=== PATIENT | female | born 1960 | race Caucasian/White ===

== ENCOUNTER 2017-08-02 12:27 | Emergency (ER) | payer MEDICAID, OTHER ==
[~2017-08-02] VITALS: Ht 165.1 cm; Wt 90.7 kg
[~2017-08-02 12:27] MED LIST: AMLODIPINE BESY10 MG ORAL; CATAPRES0.2 MG ORAL; CYCLOBENZAPRINE10 MG ORAL; GUAIFENESIN-CO118 M1 ORAL; HYDROCHLOROTHIA25 MG ORAL; IBUPROFEN600 MG ORAL; INHALERS; KEFLEX500 MG PO; NAPROXEN375 MG PO; NORCO 5-325 TA1 EACH ORAL; NORCO 5-325 TA1 EACH PO; OMEPRAZOLE40 M1 ORAL; PERCOCET1 TAB ORAL; ZITHROMAX250 MG ORAL; albuterol; atrovent
[2017-08-02] MEDS ORDERED: VISTARIL25 M1 PO (12:42)
[2017-08-02] MEDS ORDERED: CODEINE 30MG TA30 MG ORAL (12:42)
[2017-08-02] MEDS ORDERED: SOMA350 MG PO (12:42)
[2017-08-02 13:47] LABS: APPEARANCE,URINE CLEAR; KETONES,URINE NEGATIVE (NEGATIVE); LEUKOCYTE ESTERASE ,URINE 2+ (NEGATIVE); NITRITE,URINE NEGATIVE (NEGATIVE); PH,URINE 6 (4.5-8.0); PROTEIN,URINE NEGATIVE (NEGATIVE); UROBILINOGEN,URINE NORMAL MG/DL (0.0-1.0)
[2017-08-02 13:58] LABS: BACTERIA,URINE FEW /HPF; RBC,URINE 0-2 /HPF (0 - 2); SQUAMOUS EPITHELIAL CELL,UR FEW /LPF (NONE/OCC)
[2017-08-02 14:02] LABS: BASOPHILS % (AUTO) 1.4 % (0.0-2.0); EOSINOPHILS % (AUTO) 2.3 % (0.0-3.0); LYMPHOCYTES % (AUTO) 26.4 % (20.0-45.0); MEAN CORPUSCULAR HEMOGLOBIN 25.2 PG (27.0-31.0); MEAN CORPUSCULAR HGB CONC 29.8 G/DL (32.0-36.0); MEAN CORPUSCULAR VOLUME 85 FL (80-99); MEAN PLATELET VOLUME 4.8 FL (6.5-10.1); MONOCYTES % (AUTO) 7.3 % (1.0-10.0); NEUTROPHILS % (AUTO) 62.6 % (45.0-75.0); PLATELET COUNT 293 K/UL (150-450); RED BLOOD COUNT 5.34 M/UL (4.20-5.40)
[2017-08-02 14:13] VITALS: BP 178/98
[2017-08-02 14:33] LABS: ANION GAP 7 mmol/L (5-15); CALCIUM 9.5 MG/DL (8.5-10.1); CARBON DIOXIDE 27 MMOL/L (21-32); CHLORIDE 105 MMOL/L (98-107); CREATININE 1.1 MG/DL (0.55-1.30); POTASSIUM 4.3 MMOL/L (3.5-5.1); SODIUM 139 MMOL/L (136-145)
[2017-08-02 14:38] LABS: ALANINE AMINOTRANSFERASE 172 U/L (12-78); ALBUMIN/GLOBULIN RATIO 1.1 (1.0-2.7); ASPARTATE AMINO TRANSFERASE 77 U/L (15-37); LIPASE 311 U/L (73-393); TOTAL PROTEIN 7.5 G/DL (6.4-8.2)
--- NOTE | 2017-08-02 15:44 | Emergency Room Report ---
History of Present Illness General Chief Complaint: Pain Source: Patient Present Illness Allergies: Coded Allergies: SULFA(SULFONAMIDE ANTIBIOTICS) (Verified Allergy, Severe, 08/18/12) Patient History Last Menstrual Period: Post. Nursing Documentation-PMH Hx Hypertension: Yes Hx Pacemaker: No - "Metal stuart in right femur; screw in hip" Hx Asthma: Yes Hx COPD: Yes Hx Diabetes: No Hx Cancer: No Hx Dialysis: No Hx Neurological Problems: No Hx Seizures: No Physical Exam Vital Signs Date Time Temp Pulse Resp B/P (MAP) Pulse Ox O2 Delivery O2 Flow Rate FiO2 08/02/17 12:35 97.5 89 19 162/116 100 Room Air Medical Decision Making PA Attestation Dr. Maurice is my supervising Physician whom patient management has been discussed with. Diagnostic Impression: Primary Impression: Back pain Qualified Codes: M54.5 - Low back pain; G89.29 - Other chronic pain Additional Impression: Abdominal pain Qualified Codes: R10.9 - Unspecified abdominal pain ER Course Pt. presents to the ED c/o lowback and abdominal pain x several weeks. 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 Ddx considered but are not limited to Diverticulitis, acute appy, diarrhea,UC, PUD, GE, pancreatitis, gallstone Vital signs: are WNL, pt. is afebrile H&PE are most consistent with abdominal pain , HTN, and over-use of rx / not following directions as prescribed. ORDERS: -CBC, CMP: Unremarkable -EKG: - Troponin; negative -lipase: WNL -UA: unremarkable no occult blood or rbc's -UDS: positive for benzo's, opiates. -CT Abdomen without contrast: No acute pathology. per radiology report. ED INTERVENTIONS: -- DISCHARGE: At this time pt. is stable for d/c to home. Will provide printed patient care instructions, and any necessary prescriptions. Care plan and follow up instructions have been discussed with the patient prior to discharge. Labs Test 08/02/17 13:37 08/02/17 13:57 Urine Color Yellow Urine Appearance Clear Urine pH 6 (4.5-8.0) Urine Specific [place]ell 1.010 (1.005-1.035) Urine Protein Negative (NEGATIVE) Urine Glucose (UA) Negative (NEGATIVE) Urine Ketones Negative (NEGATIVE) Urine Occult Blood Negative (NEGATIVE) Urine Nitrite Negative (NEGATIVE) Urine Bilirubin Negative (NEGATIVE) Urine Urobilinogen Normal MG/DL (0.0-1.0) Urine Leukocyte Esterase 2+ (NEGATIVE) Urine RBC 0-2 /HPF (0 - 2) Urine WBC 5-10 /HPF (0 - 2) Urine Squamous Epithelial Cells Few /LPF (NONE/OCC) Urine Bacteria Few /HPF (NONE) Urine Opiates Screen Positive (NEGATIVE) Urine Barbiturates Screen Negative (NEGATIVE) Phencyclidine (PCP) Screen Negative (NEGATIVE) Urine Amphetamines Screen Negative (NEGATIVE) Urine Benzodiazepines Screen Positive (NEGATIVE) Urine Cocaine Screen Negative (NEGATIVE) Urine Marijuana (THC) Screen Negative (NEGATIVE) White Blood Count 6.0 K/UL (4.8-10.8) Red Blood Count 5.34 M/UL (4.20-5.40) Hemoglobin 13.5 G/DL (12.0-16.0) Hematocrit 45.2 % (37.0-47.0) Mean Corpuscular Volume 85 FL (80-99) Mean Corpuscular Hemoglobin 25.2 PG (27.0-31.0) Mean Corpuscular Hemoglobin Concent 29.8 G/DL (32.0-36.0) Red Cell Distribution Width 13.0 % (11.6-14.8) Platelet Count 293 K/UL (150-450) Mean Platelet Volume 4.8 FL (6.5-10.1) Neutrophils (%) (Auto) 62.6 % (45.0-75.0) Lymphocytes (%) (Auto) 26.4 % (20.0-45.0) Monocytes (%) (Auto) 7.3 % (1.0-10.0) Eosinophils (%) (Auto) 2.3 % (0.0-3.0) Basophils (%) (Auto) 1.4 % (0.0-2.0) Sodium Level 139 MMOL/L (136-145) Potassium Level 4.3 MMOL/L (3.5-5.1) Chloride Level 105 MMOL/L (98-107) Carbon Dioxide Level 27 MMOL/L (21-32) Anion Gap 7 mmol/L (5-15) Blood Urea Nitrogen 14 mg/dL (7-18) Creatinine 1.1 MG/DL (0.55-1.30) Estimat Glomerular Filtration Rate 51.0 mL/min (>60) Glucose Level 91 MG/DL (74-106) Calcium Level 9.5 MG/DL (8.5-10.1) Total Bilirubin 0.3 MG/DL (0.2-1.0) Aspartate Amino Transf (AST/SGOT) 77 U/L (15-37) Alanine Aminotransferase (ALT/SGPT) 172 U/L (12-78) Alkaline Phosphatase 105 U/L (46-116) Troponin I 0.019 ng/mL (0.000-0.056) Total Protein 7.5 G/DL (6.4-8.2) Albumin 3.9 G/DL (3.4-5.0) Globulin 3.6 g/dL Albumin/Globulin Ratio 1.1 (1.0-2.7) Lipase 311 U/L (73-393) CT/MRI/US Diagnostic Results CT/MRI/US Diagnostic Results : Imaging Test Ordered: Ct Abdomen NO CONTRAST Impression Gall-Bladder is surgically absent, there is degenerative changes in the lumbar spine in addition to notable feces in the bowels. No acute pathology Per official radiology report- Please see report for specific details. Last Vital Signs Date Time Temp Pulse Resp B/P (MAP) Pulse Ox O2 Delivery O2 Flow Rate FiO2 08/02/17 14:13 97.0 59 17 178/98 98 Room Air Disposition: HOME, SELF-CARE Condition: Stable Scripts Phenazopyridine Hcl* (PYRIDIUM*) 200 Mg Tablet 200 MG ORAL THREE TIMES A DAY for 3 Days, #9 TAB 0 Refills Prov: Deborah Campos 08/02/17 Lidocaine (Lidoderm) 1 Each Adh..patch 1 PATCH TOPIC DAILY, #20 PATCH 0 Refills Patch(es) may remain in place for up to 12 hours in any 24-hour period. Prov: Deborah Campos 08/02/17 Referrals: [facility],REFERRIN (PCP) Patient Instructions: Abdominal Pain, Adult, Back Pain, Adult Additional Instructions: Take medications as directed. Follow up with a Primary Care Provider in 3 days, even if your symptoms have resolved. --Please review list of primary care clinics, if you do not already have a primary care provider Return sooner to ED if new symptoms occur, or current symptoms become worse. Do not drink alcohol, drive, or operate heavy machinery while taking Robaxin as this may cause drowsiness. - Please note that this Emergency Department Report was dictated using [employer] dyer technology software, occasionally this can lead to erroneous entry secondary to interpretation by the dictation equipment. Deborah Campos Aug 02, 2017 15:44
[2017-08-02] MEDS ORDERED: LIDODERM700 M1 TOPIC (15:48)
[2017-08-02] MEDS ORDERED: PHENAZOPYRIDIN200 MG ORAL (15:57)
[2017-08-02 16:05] VITALS: BP 112/80
--- NOTE | 2017-08-03 14:11 | Diagnostic Imaging Report ---
Clinical Indication: Abdominal pain Technique: No oral contrast utilized, per emergency room physician request IV administration nonionic contrast. Multiphasic spiral acquisition obtained through the chest, abdomen and pelvis. Multiplanar reconstructions were generated. Total dose length product 884 mGycm. CTDIvol(s) 18 mGy. Dose reduction achieved using automated exposure control Comparison: None Findings: Lack of enteric contrast limits assessment of the GI tract. There is colonic diverticulosis. The appendix is normal. No small bowel distention. No free or loculated intraperitoneal air or fluid. The distal esophagus, stomach, duodenum or unremarkable. Lack of IV contrast limits assessment of the solid organs. The gallbladder is surgically absent. The liver, pancreas, spleen are unremarkable. The right adrenal demonstrates a 16 mm nodule in the anterior limb and a 17 mm nodule in the posterior limb. These both demonstrate low attenuation, under 10 Hounsfield units. The left adrenal equivocally demonstrates a 2 cm mass which likewise demonstrates low-attenuation. The right kidney is unremarkable. The left kidney demonstrates a high attenuation subcentimeter focus which may reflect a focus of medullary sponge kidney. No renal or ureteral calculi, hydronephrosis, or hydroureter. No pelvic mass or adenopathy. Surgical hardware is seen in the right hip. There is unilateral right L5 spondylolysis. There is grade 1 L5 on S1 spondylolisthesis. There are mild degenerative changes of the lumbosacral junction and thoracolumbar junction. Included lung bases demonstrate posterior dependent atelectatic changes Impression: Limited assessment of the GI tract, due to lack of enteric contrast administration No definite acute abnormality Colonic diverticulosis. No evidence of diverticulitis Bilateral adrenal nodules which demonstrate low attenuation, presumably benign adenomas. Unilateral right L5 spondylolysis, grade 1 L5 on S1 spondylolisthesis, mild secondary degenerative changes Other findings as noted, including right hip surgical hardware, posterior dependent pulmonary atelectatic changes The CT scanner at [facility] is accredited by the [employer] and the scans are performed using protocols designed to limit radiation exposure to as low as reasonably achievable to attain images of sufficient resolution adequate for diagnostic evaluation.
--- NOTE | 2017-08-14 19:23 | Cardiology Report ---
APPROVED REPORT EKG Measurement Heart [id number] Sinus bradycardia Possible Left atrial enlargement T wave abnormality, consider lateral ischemia Abnormal ECG
== END 2017-08-02 16:01 | disposition home or self-care (01) ==
LOC: EMR 13:00
DX: M54.5 Low back pain (principal); R10.9 Unspecified abdominal pain; J44.9 Chronic obstructive pulmonary disease, unspecified; I10 Essential (primary) hypertension; K57.30 Diverticulosis of large intestine without perforation or abscess without bleeding; Z88.2 Allergy status to sulfonamides; M47.816 Spondylosis without myelopathy or radiculopathy, lumbar region; M43.16 Spondylolisthesis, lumbar region
CPT/HCPCS: 36415; 74176; 80053; 80307; 81003; 83690; 84484; 85025; 93005; 99284

== ENCOUNTER 2018-01-16 12:01 | Emergency (ER) | payer OTHER ==
[~2018-01-16] VITALS: Ht 165.1 cm; Wt 90.7 kg
[~2018-01-16 12:01] MED LIST changes: +CODEINE 30MG TA30 MG ORAL; +LIDODERM700 M1 TOPIC; +PHENAZOPYRIDIN200 MG ORAL; +SOMA350 MG PO; +VISTARIL25 M1 PO
[2018-01-16 12:14] VITALS: BP 184/118
[2018-01-16] MEDS ORDERED: Methocarbamol 750mg tab ORAL ONE (12:30)
[2018-01-16] MEDS ORDERED: Tylenol #3 tab (300mg/30mg) ORAL ONE (12:30)
--- NOTE | 2018-01-16 13:01 | Diagnostic Imaging Report ---
Indication: Headache Technique: Contiguous 5 mm thick transaxial imaging of the head obtained in a Siemens Sensation [address] scanner. Soft tissue and bone windows generated. Automatic Exposure Control was utilized. Total Dose length Product (DLP): 1435.[address] Dose Index Volume (CTDIvol): 70.38 mGy Comparison: none Findings: There is mild prominence of the ventricles, basal cisterns, and cerebral sulci consistent with atrophy. Mild, nonspecific, white matter hypoattenuation is noted throughout the brain consistent with chronic small vessel disease. There is no midline shift, edema, acute hemorrhage, mass effect, or abnormal extra-axial fluid collections. Bones and extra osseous soft tissues are unremarkable. Impression: No acute intracranial bleed, mass effect or edema. Mild atrophy of the brain. Nonspecific white matter hypoattenuation probably due to chronic small vessel disease. The CT scanner at [facility] is accredited by the [employer] and the scans are performed using dose optimization techniques as appropriate to a performed exam including Automatic Exposure control.
[2018-01-16] MEDS ORDERED: Morphine Sulfate 4mg/ml Inj IVP ONE (13:30)
[2018-01-16 13:40] LABS: BASOPHILS % (AUTO) 0.9 % (0.0-2.0); EOSINOPHILS % (AUTO) 0.8 % (0.0-3.0); HEMATOCRIT 41.4 % (37.0-47.0); HEMOGLOBIN 13.3 G/DL (12.0-16.0); LYMPHOCYTES % (AUTO) 21.6 % (20.0-45.0); MEAN CORPUSCULAR VOLUME 82 FL (80-99); MONOCYTES % (AUTO) 6.2 % (1.0-10.0); NEUTROPHILS % (AUTO) 70.5 % (45.0-75.0); PLATELET COUNT 292 K/UL (150-450); RED BLOOD COUNT 5.04 M/UL (4.20-5.40); RED CELL DISTRIBUTION WIDTH 14.1 % (11.6-14.8)
--- NOTE | 2018-01-16 13:50 | Diagnostic Imaging Report ---
Indication: Chest Comparison: 05/13/2013 A single view chest radiograph was obtained. Findings: Lungs are clear. The heart is enlarged. Aorta is mildly enlarged. Bones are unremarkable. IMPRESSION: No acute disease. Cardiomegaly
[2018-01-16 13:56] LABS: ANION GAP 12 mmol/L (5-15); BLOOD UREA NITROGEN 18 mg/dL (7-18); CALCIUM 9.8 MG/DL (8.5-10.1); CARBON DIOXIDE 23 MMOL/L (21-32); CHLORIDE 104 MMOL/L (98-107); POTASSIUM 3.8 MMOL/L (3.5-5.1); SODIUM 139 MMOL/L (136-145)
[2018-01-16 14:09] VITALS: BP 168/98
[2018-01-16 14:09] LABS: ALANINE AMINOTRANSFERASE 30 U/L (12-78); ALBUMIN 4.7 G/DL (3.4-5.0); ALBUMIN/GLOBULIN RATIO 1.1 (1.0-2.7); ALKALINE PHOSPHATASE 121 U/L (46-116); ASPARTATE AMINO TRANSFERASE 20 U/L (15-37); BILIRUBIN,TOTAL 0.5 MG/DL (0.2-1.0); CKMB 2.7 NG/ML (0.0-3.6); CREATINE KINASE 80 U/L (26-308)
--- NOTE | 2018-01-16 14:09 | Emergency Room Report ---
History of Present Illness General Chief Complaint: Headache Source: Patient Present Illness HPI 57-year-old female presents ED complaining of headache. Started 2 days ago. Patient points to the left side of her neck radiating down to the left shoulder. Pain is throbbing, 9 out of 10. Denies photophobia or neck stiffness. Denies nausea or vomiting. Denies chest pain or shortness of breath. Patient notes history of CVA in September. States at that time she was feeling very dizzy with unsteady gait with left-sided arm and leg weakness. Patient denies having no symptoms at this time. No other aggravating relieving factors. Denies any other associated symptoms Allergies: Coded Allergies: SULFA(SULFONAMIDE ANTIBIOTICS) (Verified Allergy, Severe, 08/18/12) Patient History Past Medical History: HTN, asthma, COPD, CVA/TIA Past Surgical History: none Pertinent Family History: none Social History: Denies: smoking, alcohol use, drug use Last Menstrual Period: Post Now: No Immunizations: UTD Reviewed Nursing Documentation: PMH: Agreed; PSxH: Agreed Nursing Documentation-PMH Hx Hypertension: Yes Hx Pacemaker: No - "Metal stuart in right femur; screw in hip" Hx Asthma: Yes Hx COPD: Yes Hx Diabetes: No Hx Cancer: No Hx Dialysis: No Hx Neurological Problems: No Hx Cerebrovascular Accident: Yes - 09/2017. Hx Seizures: No Review of Systems All Other Systems: negative except mentioned in HPI Physical Exam Vital Signs Date Time Temp Pulse Resp B/P (MAP) Pulse Ox O2 Delivery O2 Flow Rate FiO2 01/16/18 12:04 97.7 89 17 192/124 99 Room Air 97.7 Sp02 EP Interpretation: reviewed, normal General Appearance: no apparent distress, alert, GCS 15, non-toxic Head: normocephalic, atraumatic Eyes: bilateral eye normal inspection, bilateral eye PERRL ENT: hearing grossly normal, normal pharynx, no angioedema, normal voice Neck: full range of motion, supple, no meningismus, no bony tend, supple/symm/ no masses Respiratory: chest non-tender, lungs clear, normal breath sounds, speaking full sentences Cardiovascular #1: regular rate, rhythm, no edema Cardiovascular #2: 2+ carotid (R), 2+ carotid (L), 2+ radial (R), 2+ radial (L) , 2+ dorsalis pedis (R), 2+ dorsalis pedis (L) Gastrointestinal: normal bowel sounds, non tender, soft, non-distended, no guarding, no rebound Rectal: deferred Genitourinary: normal inspection, no CVA tenderness Musculoskeletal: back normal, gait/station normal, normal range of motion, non- tender Neurologic: alert, oriented x3, responsive, 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 as tested, motor strength/tone normal, sensory intact, normal gait, speech normal Psychiatric: judgement/insight normal, memory normal, mood/affect normal, no suicidal/homicidal ideation Reflexes: 3+ bicep (R), 3+ bicep (L), 3+ tricep (R), 3+ tricep (L), 3+ knee (R) , 3+ knee (L) Skin: normal color, no rash, warm/dry, well hydrated Lymphatic: no adenopathy Medical Decision Making Diagnostic Impression: Primary Impression: Cervical strain Qualified Codes: S16.1XXA - Strain of muscle, fascia and tendon at neck level , initial encounter ER Course Hospital Course 57-year-old female presents ED complaining of left-sided neck pain radiating to left shoulder Differential diagnoses include: atypical chest pain, cervical strain, intracranial blee Clinical course Patient placed on stretcher. 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 After initial history and physical I ordered labs, EKG, chest Xray, IVFs, CT Brain labs reviewed- no leukocytosis, Hb/Hct stable, electrolytes ok, troponins negative CT Brain - unremarkable Chest x-ray- no acute process EKG - twave inversions in lateral leads On reassessment pain is improved. Based on my exam I believe the pain was muscular. Consideration for atypical chest pain. Troponins negative and EKG unchanged from previous visit. CT head negative and no focal neurological deficits. I reviewed EMR and patient has been here for previous pain related complaints. Is on multiple narcotic medications. I believe patient is safe for discharge at this time I. I feel this is a highly complex case requiring extensive working including EKG/Rhythm strip, Xray/CT/US, Blood/urine lab work, repeat exams while in ED, and administration of strong opiates/narcotics for pain control, admission to hospital or close patient follow up. Diagnosis - cervical strain Stable and discharged to home with Rx Motrin, Robaxin. Followup with PMD. Return to ED if symptoms recur or worsen Labs Test 01/16/18 13:20 White Blood Count 7.0 K/UL (4.8-10.8) Red Blood Count 5.04 M/UL (4.20-5.40) Hemoglobin 13.3 G/DL (12.0-16.0) Hematocrit 41.4 % (37.0-47.0) Mean Corpuscular Volume 82 FL (80-99) Mean Corpuscular Hemoglobin 26.3 PG (27.0-31.0) Mean Corpuscular Hemoglobin Concent 32.1 G/DL (32.0-36.0) Red Cell Distribution Width 14.1 % (11.6-14.8) Platelet Count 292 K/UL (150-450) Mean Platelet Volume 5.7 FL (6.5-10.1) Neutrophils (%) (Auto) 70.5 % (45.0-75.0) Lymphocytes (%) (Auto) 21.6 % (20.0-45.0) Monocytes (%) (Auto) 6.2 % (1.0-10.0) Eosinophils (%) (Auto) 0.8 % (0.0-3.0) Basophils (%) (Auto) 0.9 % (0.0-2.0) Sodium Level 139 MMOL/L (136-145) Potassium Level 3.8 MMOL/L (3.5-5.1) Chloride Level 104 MMOL/L (98-107) Carbon Dioxide Level 23 MMOL/L (21-32) Anion Gap 12 mmol/L (5-15) Blood Urea Nitrogen 18 mg/dL (7-18) Creatinine 1.0 MG/DL (0.55-1.30) Estimat Glomerular Filtration Rate 56.9 mL/min (>60) Glucose Level 91 MG/DL (74-106) Calcium Level 9.8 MG/DL (8.5-10.1) Total Bilirubin 0.5 MG/DL (0.2-1.0) Aspartate Amino Transf (AST/SGOT) 20 U/L (15-37) Alanine Aminotransferase (ALT/SGPT) 30 U/L (12-78) Alkaline Phosphatase 121 U/L (46-116) Total Creatine Kinase 80 U/L (26-308) Creatine Kinase MB 2.7 NG/ML (0.0-3.6) Creatine Kinase MB Relative Index 3.3 Troponin I 0.027 ng/mL (0.000-0.056) Total Protein 8.9 G/DL (6.4-8.2) Albumin 4.7 G/DL (3.4-5.0) Globulin 4.2 g/dL Albumin/Globulin Ratio 1.1 (1.0-2.7) EKG Diagnostic Results Rate: normal Rhythm: NSR ST Segments: other - twave inversions in lateral leads ASA given to the pt in ED: No Rhythm Strip Diag. Results EP Interpretation: yes Rhythm: NSR, no PVC's, no ectopy Chest X-Ray Diagnostic Results Chest X-Ray Diagnostic Results : Chest X-Ray Ordered: Yes # of Views/Limited/Complete: 1 View Indication: Chest Pain EP Interpretation: Yes Interpretation: no consolidation, no effusion, no pneumothorax, no acute cardiopulmonary disease Impression: No acute disease Electronically Signed by: Electronically signed by Carlos Mo MD CT/MRI/US Diagnostic Results CT/MRI/US Diagnostic Results : Imaging Test Ordered: CT Head Impression no acute process Last Vital Signs Date Time Temp Pulse Resp B/P (MAP) Pulse Ox O2 Delivery O2 Flow Rate FiO2 01/16/18 13:33 97.7 01/16/18 12:14 84 17 184/118 99 Room Air Status: improved Disposition: HOME, SELF-CARE Condition: Stable Scripts Methocarbamol* (ROBAXIN-750*) 750 Mg Tablet 750 MG PO TID, #21 TAB 0 Refills Prov: Carlos Mo MD 01/16/18 Ibuprofen* (MOTRIN*) 600 Mg Tablet 600 MG ORAL THREE TIMES A DAY, #30 TAB 0 Refills Prov: Carlos Mo MD 01/16/18 Referrals: [facility],REFERRING (PCP) Carlos Mo MD January 16, 2018 14:09
[2018-01-16] MEDS ORDERED: ROBAXIN-750750 MG PO (14:36)
[2018-01-16] MEDS ORDERED: IBUPROFEN600 MG ORAL (14:36)
[2018-01-16 15:00] VITALS: BP 168/98
--- NOTE | 2018-01-17 15:58 | Cardiology Report ---
APPROVED REPORT EKG Measurement Heart [id number] IN 172P56 [id number] Normal sinus rhythm with sinus arrhythmia Possible Left atrial enlargement Left ventricular hypertrophy T wave abnormality, consider inferolateral ischemia Abnormal ECG
== END 2018-01-16 15:01 | disposition home or self-care (01) ==
LOC: EMR 12:30
DX: S16.1XXA Strain of muscle, fascia and tendon at neck level, initial encounter (principal); X58.XXXA Exposure to other specified factors, initial encounter; Y92.9 Unspecified place or not applicable; Z88.2 Allergy status to sulfonamides; I10 Essential (primary) hypertension; J44.9 Chronic obstructive pulmonary disease, unspecified; Z86.73 Personal history of transient ischemic attack (TIA), and cerebral infarction without residual deficits
CPT/HCPCS: 36415; 70450; 71045; 80053; 82550; 82553; 84484; 85025; 93005; 96374; 99284; J2270; 96375

== ENCOUNTER 2018-07-06 20:08 | Emergency (ER) | payer OTHER ==
[~2018-07-06] VITALS: Ht 167.6 cm; Wt 97.5 kg
[~2018-07-06 20:08] MED LIST changes: +ROBAXIN-750750 MG PO
[2018-07-06 20:43] VITALS: BP 166/114
[2018-07-06] MEDS ORDERED: NORVASC10 MG ORAL (20:43)
[2018-07-06] MEDS ORDERED: BACLOFEN10 MG ORAL (21:08)
[2018-07-06 21:15] VITALS: BP 146/97
--- NOTE | 2018-07-06 21:16 | Emergency Room Report ---
History of Present Illness General Chief Complaint: Edema Present Illness HPI Patient is a 58-year-old female presented after increased bilateral lower extremity swelling. The patient was noted to have prior history of CVA and had recently had increased back spasms. Patient was noted to have been sleeping upright in a chair for several days due to back spasming. Patient stated that she had a recent fall onto her buttocks. She reports being able to ambulate since the fall. She reports having continued numbness to her left side since her CVA. The patient reports having had no fever. She had prior use of diuretics.The patient previously had a support hose however she had not been using them. Allergies: Coded Allergies: SULFA(SULFONAMIDE ANTIBIOTICS) (Verified Allergy, Severe, 08/18/12) Patient History Past Medical History: see triage record Last Menstrual Period: 2008 Now: No Reviewed Nursing Documentation: PMH: Agreed; PSxH: Agreed Nursing Documentation-PMH Hx Cardiac Problems: Yes - ARTHRITIS, cva on sep Hx Hypertension: Yes Hx Pacemaker: No - "Metal stuart in right femur; screw in hip" Hx Asthma: Yes Hx COPD: Yes Hx Diabetes: No Hx Cancer: No Hx Dialysis: No Hx Neurological Problems: No Hx Cerebrovascular Accident: Yes - 09/2017. Hx Seizures: No Review of Systems All Other Systems: negative except mentioned in HPI Physical Exam Vital Signs Date Time Temp Pulse Resp B/P (MAP) Pulse Ox O2 Delivery O2 Flow Rate FiO2 07/06/18 20:35 97.9 82 16 166/114 95 Room Air General Appearance: well appearing, no apparent distress, alert, GCS 15, obese , Chronically Ill Head: normocephalic, atraumatic ENT: hearing grossly normal, normal voice Neck: full range of motion, supple Respiratory: no respiratory distress, speaking full sentences Musculoskeletal: no calf tenderness Neurologic: alert, oriented x3, sensory deficit - left side numbness, other - slurred speech Psychiatric: normal inspection, judgement/insight normal, mood/affect normal Skin: other - no rash noted Medical Decision Making Diagnostic Impression: Primary Impression: Muscle spasm Additional Impression: CVA, old, ataxia ER Course Patient is a for left leg swelling. The differential diagnosis included was not limited to DVT, fracture, dependent edema, CHF among others. Patient has a benign exam and does not appear to require any further imaging or laboratory testing at this time. Patient appears to have the the normal cardiac exam. The patient noted have some dependent edema. This appears to be related to patient's neurologic and dependent situation. The patient is advised to use compression hose and to keep her legs up as much as possible. She is advised follow-up with primary care physician for recheck. Last Vital Signs Date Time Temp Pulse Resp B/P (MAP) Pulse Ox O2 Delivery O2 Flow Rate FiO2 07/06/18 20:35 97.9 82 16 166/114 95 Room Air Status: unchanged Disposition: HOME, SELF-CARE Condition: Stable Scripts Baclofen* (BACLOFEN*) 10 Mg Tablet 10 MG ORAL QHS for back spasm, #20 TAB Prov: Sheldon Gonzalez MD 07/06/18 Patient Instructions: Peripheral Edema Additional Instructions: Wear support hose. Follow up with your primary care physician for back MRI. Return if any problems Sheldon Gonzalez MD Jul 06, 2018 21:16
== END 2018-07-06 21:15 | disposition home or self-care (01) ==
LOC: EMR 20:55
DX: M62.838 Other muscle spasm (principal); R27.0 Ataxia, unspecified; J44.9 Chronic obstructive pulmonary disease, unspecified; I10 Essential (primary) hypertension; R60.0 Localized edema; Z86.73 Personal history of transient ischemic attack (TIA), and cerebral infarction without residual deficits; Z88.2 Allergy status to sulfonamides
CPT/HCPCS: 99283